=== PATIENT | male | born 1970 | race Caucasian/White ===

== ENCOUNTER 2017-07-20 17:33 | Inpatient (IN) | END 2017-07-27 15:52 | disposition home health service (06) | DRG 854 ==

== ENCOUNTER 2017-09-28 13:28 | Emergency (ER) | END 2017-09-28 15:59 | disposition home or self-care (01) ==

== ENCOUNTER 2017-12-05 11:40 | Emergency (ER) | END 2017-12-05 17:03 | disposition home or self-care (01) ==